=== PATIENT | male | born 1945 | race Caucasian/White ===

== ENCOUNTER 2018-10-17 10:05 | Emergency (ER) | payer OTHER ==
--- OUTSIDE RECORDS SUMMARY | 2018-10-17 10:07 | XMS REPORT | Clinical Summary ---
:1945 Author Organization [facility] Address [address] [place] [address] Care Team Providers Name Role Phone Nikhil Ackerman MD Primary Care Provider Allergies Active Allergy Reactions Severity Noted Date Comments Iodine 10/07/2017 Swelling of upper lip Medications Medication Sig Dispensed Refills Start Date End Date Status finasteride (PROSCAR) Take 5 mg by 0 07/04/2017 Active 5 mg tablet mouth daily. atorvastatin Take 40 mg by 0 10/02/2017 Active (LIPITOR) 40 MG mouth daily. tablet metoprolol tartrate Take 25 mg by 0 Active (LOPRESSOR) 25 mg mouth 2 (two) tablet times a day. aspirin (ECOTRIN) 81 Take 81 mg by 0 Active MG enteric coated mouth daily. tablet diosmin complex no.1 Take by mouth. 0 Active (VASCULERA ORAL) turmeric 400 mg Take by mouth. 0 Active capsule amIODarone (PACERONE) Take 1 tablet 60 tablet 0 10/15/2017 11/14/2017 400 MG tablet (400 mg total) by mouth every 12 (twelve) hours for 30 days. apixaban (ELIQUIS) 5 Take 1 tablet (5 60 tablet 0 10/15/2017 11/14/2017 mg tablet mg total) by mouth 2 (two) times a day for 30 days. aspirin (ECOTRIN) 81 Take 1 tablet 30 tablet 0 10/15/2017 11/14/2017 MG enteric coated (81 mg total) by tablet mouth daily for 30 days. metoprolol tartrate Take 0.5 tablets 30 tablet 0 10/15/2017 11/14/2017 (LOPRESSOR) 25 mg (12.5 mg total) tablet by mouth 2 (two) times a day for 30 days. acetaminophen-codeine Take 1-2 tablets 20 tablet 0 10/15/2017 10/25/2017 (TYLENOL WITH CODEINE by mouth every 4 #3) 300-30 mg per (four) hours as tablet needed for moderate pain for up to 10 days. furosemide (LASIX) 40 Take 1 tablet 7 tablet 0 10/15/2017 10/22/2017 mg tablet (40 mg total) by mouth daily for 7 days. potassium chloride Take 1 tablet 7 tablet 0 10/15/2017 10/22/2017 (K-DUR) 20 MEQ CR (20 mEq total) tablet by mouth daily for 7 days. Active Problems Problem Noted Date Tendinitis of finger 10/07/2018 Trigger middle finger of left hand 10/07/2018 Trigger middle finger of right hand 10/07/2018 s/p Right sided weakness 10/11/2017 Atrial fibrillation, currently in sinus rhythm 10/11/2017 Anticoagulated on heparin 10/11/2017 Lactic acidosis 10/08/2017 Hyperglycemia 10/08/2017 Leukemoid reaction 10/08/2017 S/P CABG x 4 10/07/2017 Bleeding 10/07/2017 Postoperative anemia due to acute blood loss 10/07/2017 Coagulopathy 10/07/2017 Coronary artery disease 10/02/2017 Encounters Date Type Specialty Care Team Description 10/07/2018 Office Visit Orthopedic Surgery Timbo Medrano, Bilateral hand pain (Primary Dx); Tendinitis of finger; Trigger middle finger of left hand; Trigger middle finger of right hand after 10/16/2017 Social History Tobacco Use Types Packs/Day Years Used Date Former Smoker Smokeless Tobacco: Never Used Alcohol Use Drinks/Week oz/Week Comments No Sex Assigned at Date Recorded Not on file Job Start Date Occupation Industry Not on file Not on file Not on file Travel History Travel Start Travel End No recent travel history available. Last Filed Vital Signs Not on file Plan of Treatment Health Maintenance Due Date Last Done Comments COLON CANCER SCREENING 1996 SHINGLES VACCINES (#1) 1996 65+ PNEUMOCOCCAL VACCINE (1 of 2 - PCV13) 2011 PNEUMOCOCCAL POLYSACCHARIDE VACCINE AGE 65 AND OVER 2011 INFLUENZA VACCINE 02/19/2018 Implants Implanted Type Area Solutions Consultant Device Shelf Model / Identifier Expiration Serial / Date Lot Lead Pace Mycrdl Bipolar Coax Tmpry Streamline - [id number] Cardiac Pacing N/ A: MEDTRONIC [place] - [id number] / Implanted: 10/07/2017 (Quantity not on file) Leads or N/A CARDIAC RYHTYM / Electrodes or MGMT Accessories Lead Pace Mycrdl Bipolar Coax Tmpry Streamline - [id number] Cardiac Pacing N/ A: MEDTRONIC [place] - [id number] / Implanted: 10/07/2017 (Quantity not on file) Leads or N/A CARDIAC RYHTYM / Electrodes or MGMT Accessories Clip Ligtng Weck Hemoclip Plus W/ Tape Ti Med - [id number] Medical Clips N/A : TELEFLEX [id number] / Implanted: 10/07/2017 (Quantity not on file) for Internal N/A MEDICAL / Use Clip Ligtng Weck Hemoclip Plus W/ Tape Ti Med - [id number] Medical Clips N/A : TELEFLEX [id number] / Implanted: 10/07/2017 (Quantity not on file) for Internal N/A MEDICAL / Use Clip Ligtng Weck Hemoclip Plus W/ Tape Ti Sm Strngpnt - [id number] Medical Clips N/A: WECK CLOSURE [id number] / Implanted: 10/07/2017 (Quantity not on file) for Internal N/A SYSTEMS / Use Clip Ligtng Weck Hemoclip Plus W/ Tape Ti Sm Strngpnt - [id number] Medical Clips N/A: WECK CLOSURE [id number] / Implanted: 10/07/2017 (Quantity not on file) for Internal N/A SYSTEMS / Use Material Bone Hmsts Wtrsolbl 2.5g Ostene - [id number] Orthopedic N/A: CERA MED 12/19/2021 [id number] / Implanted: Qty: 1 on 10/07/2017 by Pradeep Sung MD Trauma N /A / Implants [id number] [place] Perp Vasclr Ptfe 1.2x10cm 1.65mm - [id number] Vascular Graft N/A: BARD PERIPHERAL 06/18/2022 [id number] / Implanted: Qty: 1 on 10/07/2017 by Pradeep Sung MD N/A VASCULAR / [id number] Procedures Procedure Name Priority Date/Time Associated Comments Diagnosis XR HANDS 3 VW BILATERAL Routine 10/07/2018 9:40 Bilateral hand Results for this AM CDT pain procedure are in the results section. [place] INJECT TENDON Routine 10/07/2018 9:30 Tendinitis of Results for this SHEATH/LIGAMENT AM CDT finger procedure are in Trigger middle the results finger of left section. hand Trigger middle finger of right hand TRANSFUSE PLATELETS Routine 03/26/2018 5:51 PM CDT TRANSFUSE Routine 03/26/2018 5:51 CRYOPRECIPITATE PM CDT TRANSFUSE Routine 03/26/2018 5:51 CRYOPRECIPITATE PM CDT after 10/16/2017 Results XR Hands 3 Vw Bilateral (10/07/2018 9:40 AM CDT) Narrative Performed At 3 views bilateral hands in good penetrance and quality with out any acute [facility] obvious fractures, dislocations or calcifications unless HPI states otherwise. Performing Organization Address City/State/Zipcode Phone Number [facility] [address] [place] [address] Hand/Upper Extremity Injection/Arthrocentesis: Bilateral long finger (2018 9:30 AM CDT) Narrative Performed At Timbo Medrano MD 10/07/2018 10:09 AM Hand/Upper Extremity Injection/Arthrocentesis: Bilateral long finger Date/Time: 10/07/2018 10:08 AM Consent given by: patient Supporting Documentation Indications: pain Procedure Details Condition: trigger finger Site: Bilateral long finger Right side: Needle size: 25 G Approach: anterior Right long finger medications administered: 1 mL lidocaine 10 mg/mL (1 %); 6 mg betamethasone acetate & sodium phosphate 6 mg/mL Patient tolerance: patient tolerated the procedure well with no immediate complications Left side: Needle size: 25 G Approach: anterior Left long finger medications administered: 6 mg betamethasone acetate & sodium phosphate 6 mg/mL; 1 mL lidocaine 10 mg/mL (1 %) Patient tolerance: patient tolerated the procedure well with no immediate complications Injection Type: tendon sheath Transfuse cryoprecipitate (03/26/2018 5:51 PM CDT)Only the most recent of2 resultswithin the time period is included.Transfuse platelets (03/26/2018 5:51 PM CDT)after 10/16/2017 Insurance Payer Benefit Plan / Group Subscriber ID Type Phone Address MEDICARE MEDICARE PART A AND B xxxxxxxxxxx Medicare [place], [place] A[employer] CO OF xxxxxxxxxx [employer] [place] (Home) [place] [address] Advance Directives Patient has advance care planning documents on file. For more information, please contact:Bahman Morris[address] [place] [address]
[2018-10-17] MEDS ORDERED: TETANUS & DIPHTHERIA TOX,ADULT 0.5 ML VIAL ONE (10:47)
[2018-10-17] MEDS ORDERED: DERMABOND SKIN ADHESIVE TOP ONE (10:47)
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
== END 2018-10-17 11:11 | disposition home or self-care (01) ==
LOC: ER 10:05
PROC: 0JQK0ZZ Repair Left Hand Subcutaneous Tissue and Fascia, Open Approach (ICD-10-PCS; principal; 2018-10-17)
DX: S61.211A Laceration without foreign body of left index finger without damage to nail, initial encounter (principal); W33.02XA Accidental discharge of hunting rifle, initial encounter; Y93.89 Activity, other specified; Y92.9 Unspecified place or not applicable; Z23 Encounter for immunization; Z79.82 Long term (current) use of aspirin; Z85.828 Personal history of other malignant neoplasm of skin; Z95.1 Presence of aortocoronary bypass graft
CPT/HCPCS: 90714; 99284

== ENCOUNTER 2018-11-17 11:49 | Day surgery (SDC) | payer OTHER ==
--- OUTSIDE RECORDS SUMMARY | 2018-11-17 11:52 | XMS REPORT | Clinical Summary ---
:1945 Author Organization [facility] Address [address] [place] [address] Care Team Providers Name Role Phone Nikhil Ackerman MD Primary Care Provider Allergies Active Allergy Reactions Severity Noted Date Comments Iodine 10/07/2017 Swelling of upper lip Medications Medication Sig Dispensed Refills Start Date End Date Status finasteride (PROSCAR) 5 Take 5 mg by 0 07/04/2017 Active mg tablet mouth daily. atorvastatin (LIPITOR) Take 40 mg by 0 10/02/2017 Active 40 MG tablet mouth daily. metoprolol tartrate Take 25 mg by 0 Active (LOPRESSOR) 25 mg tablet mouth 2 (two) times a day. aspirin (ECOTRIN) 81 MG Take 81 mg by 0 Active enteric coated tablet mouth daily. diosmin complex no.1 Take by mouth. 0 Active (VASCULERA ORAL) turmeric 400 mg capsule Take by mouth. 0 Active Active Problems Problem Noted Date Tendinitis of [...] Trigger middle finger of right hand after 11/16/2017 Social History Tobacco Use Types Packs/Day Years [...] AGE 65 AND OVER 2011 INFLUENZA VACCINE 02/19/2019 Implants Implanted Type Area Pharmacy Coordinator Device Shelf Model / Identifier Expiration Serial / Date Lot Lead Pace Mycrdl Bipolar Coax Tmpry Streamline - [id number] Cardiac Pacing N/ A: MEDTR[employer]IC [place] - [id number] / Implanted: 10/07/2017 (Quantity not on file) Leads or N/A CARDIAC RYHTYM / Electrodes or MGMT Accessories Lead Pace Mycrdl Bipolar Coax Tmpry Streamline - [id number] Cardiac Pacing N/ A: [employer]TRONIC [place] - 6495 / Implanted: 10/07/2017 (Quantity not on file) Leads or N/A CARDIAC RYHTYM / Electrodes or MGMT Accessories Clip Ligtng Weck Hemoclip Plus W/ Tape Ti Med - [id number] Medical Clips N/A : TELEFLEX [id number] / Implanted: 10/07/2017 (Quantity not on file) for Internal N/A MEDICAL / Use Clip Ligtng Weck Hemoclip Plus W/ Tape Ti Med - [id number] Medical Clips N/A : TELEFLEX [id number] / Implanted: 10/07/2017 (Quantity not on file) for Internal N/A MEDICAL / Use Clip Ligtng Weck Hemoclip Plus W/ Tape Ti Sm Strngpnt - [id number] Medical Clips N/A: WECK CLOSURE [id number] / Implanted: 10/07/2017 (Quantity not on file) for Internal N/A SYSTEMS / Use Clip Ligtng Weck Hemoclip Plus W/ Tape Ti Sm Strngpnt - [id number] Medical Clips N/A: LAURA CLOSURE [id number] / Implanted: 10/07/2017 (Quantity not on file) for Internal N/A SYSTEMS / Use Material Bone Hmsts Wtrsolbl 2.5g Ostene - [id number] Orthopedic N/A: CERA MED 12/19/2021 [id number] / Implanted: Qty: 1 on 10/07/2017 by Pradeep Sung MD Trauma N /A / Implants [id number] [place] Perph Vasclr Ptfe 1.2x10cm 1.65mm - [id number] Vascular Graft N/A: BARD PERIPHERAL 06/18/2022 [id number] / Implanted: Qty: 1 on 10/07/2017 by Pradeep Sung MD N/A VASCULAR / [id number] Procedures Procedure Name Priority Date/Time Associated Comments Diagnosis XR HANDS 3 VW BILATERAL Routine 10/07/2018 9:40 Bilateral hand Results for this AM CDT pain procedure are in the results section. [place] INJECT TENDON Routine 10/07/2018 9:30 Tendinitis of Results for this SHEATH/LIGAMENT AM CDT finger procedure are in Trigger middle the results finger of left section. hand Trigger middle finger of right hand TRANSFUSE PLATELETS Routine 03/26/2018 5:51 PM CDT TRANSFUSE Routine 03/26/2018 5:51 CRYOPRECIPITATE PM CDT TRANSFUSE Routine 03/26/2018 5:51 CRYOPRECIPITATE PM CDT after 11/16/2017 Results XR Hands 3 Vw Bilateral (10/07/2018 9:40 AM CDT) Narrative Performed At 3 views bilateral hands in good penetrance and quality with out any acute [facility] obvious fractures, dislocations or calcifications unless HPI states otherwise. Performing Organization Address City/State/Zipcode Phone Number [facility] [address] [place] [address] Hand/Upper Extremity Injection/Arthrocentesis: Bilateral long finger (2018 [...] is included.Transfuse platelets (03/26/2018 5:51 PM CDT)after 11/16/2017 Insurance Payer Benefit Plan / Group Subscriber ID Type Phone Address MEDICARE MEDICARE PART A AND B xxxxxxxxxxx Medicare [place], [place] [employer]NA [employer] OF xxxxxxxxxx [address] [place] (Home) [place] [address] Advance Directives Patient has advance care planning documents on file. For more information, please contact:Bahman Morris[address] [place] [address]
[2018-11-17] MEDS ORDERED: NA CHLORIDE 0.9% 500 ML ONE (12:16)
[2018-11-17] MEDS ORDERED: CYCLOPENTOLATE 1% OPTH 2 ML ONE (12:17)
[2018-11-17] MEDS ORDERED: PHENYLEPHRINE 10% OPTH 5ML ONE (12:17)
[2018-11-17] MEDS: LIDOCAINE 2% MPF 5 ML VIAL ONE ×2 (12:18→13:35)
[2018-11-17] MEDS: BUPIVACAINE 0.25% PF 10 ML VIAL ONE ×2 (12:18→13:35)
[2018-11-17] MEDS: TETRACAINE HCL 0.5% 4ML OPTH ONE ×2 (12:18→13:34)
[2018-11-17] MEDS ORDERED: PHENYLEPHRINE 10% OPTH 5ML OPTH ONE ×2 (12:29→12:42)
[2018-11-17] MEDS ORDERED: CYCLOPENTOLATE 1% OPTH 2 ML OPTH ONE ×2 (12:29→12:42)
[2018-11-17] MEDS ORDERED: BALANCED SALT IRRIG PLAIN 500 ML BTL IRR ONE (13:03)
[2018-11-17] MEDS ORDERED: DUOVISC 1 KIT OPTH ONE ×2 (13:03→13:53)
[2018-11-17] MEDS ORDERED: EPINEPHRINE/PF 1 MG/ML AMP ONE (13:03)
[2018-11-17] MEDS ORDERED: NS 0.9% VIAL 10 ML ONE (13:03)
[2018-11-17] MEDS ORDERED: MOXIFLOXACIN HCL 10 DROPS/ML **OR USE OPTH ONE (13:04)
[2018-11-17] MEDS ORDERED: LIDOCAINE 1% MPF 5 ML VIAL ONE (13:18)
[2018-11-17] MEDS ORDERED: PROPOFOL 200 MG/20 ML VIAL IV ONE ×2 (13:18→13:30)
[2018-11-17] MEDS ORDERED: LIDOCAINE 2% MPF 5 ML VIAL ONE (13:30)
--- NOTE | 2018-11-17 14:18 | P.BOP ---
Preoperative diagnosis: Nuclear sclerotic cataract OD Postoperative diagnosis: Same Primary procedure: Phacoemulsification with IOL OD Estimated blood loss: None Anesthesia: Local (Subtenon's infusion with anesthesia for cataract surgery) Complications: None Implants: [id number] +21.5 Transferred to: Other (Day surgery) Condition: Good
--- NOTE | 2018-11-18 01:17 | OP ---
Date of Procedure: 11/17/2018 Surgeon: Meenu Brooks MD Anesthesiologist: Zofia Sierra CRNA and Pineda Rosado MD. Preoperative Diagnosis: Nuclear sclerotic cataract, right eye. Operation Performed: Phacoemulsification with intraocular lens implant, right eye. Anesthesia: Per cataract surgery. Complications: None. Description Of Procedure: In day surgery, the patient was prepped with Betadine and draped. A conju nctival incision was made in the inferior nasal quadrant with Merrill scissors. A sub-Tenon block c onsisting of a 1:1 mixture of 2% Xylocaine and 0.25% bupivacaine was placed through the conjunctival incision with a blunt cannula. A Honan balloon was placed over the eye and the patient was transferr ed to the operating room. In the operating room the patient was prepped and draped in the usual sterile fashion for ophthalmic surgery. A lid speculum was placed in the right eye. Two paracentesis sites were made superiorly an d inferiorly in the limbal cornea. Viscoat was placed in the anterior chamber and a crescent blade w as used to make a corneal groove and tunnel, and a keratome was used to enter the anterior chamber. Provisc was placed in the anterior chamber and a 360 degree capsulotomy was performed with a cystitom e. The lens was hydrodissected with BSS and rotated freely. The lens was removed with a stop and ch op technique. 19.14 phaco CDE was used to remove the lens. Residual cortex was removed with the irr igation and aspiration. Provisc was placed in the capsular bag. A ZCB00 +21.5 lens was placed in th e capsular bag without complications. Irrigation and aspiration were used to remove residual viscoel astic. The paracentesis sites were hydrated with BSS. The wound and paracentesis sites were inspect ed and found to be watertight. Vigamox 0.07 cc was placed intracamerally at the end of the procedure . The eye was irrigated with balanced salt solution. The eye was patched with a soft cotton patch a nd Hernandez metal shield. The patient was returned to day surgery in good condition. Comments: 1:5000 epinephrine was placed in the anterior chamber prior to Viscoat. Discharge Instructions: Mr. Valentine is discharged to home in good condition and is to follow up with D r. Leidlein in the morning. JHL/MODL Voice ID: [id number] Report ID: [id number]
== END 2018-11-17 14:40 | disposition home or self-care (01) ==
LOC: OR 11:49
PROVIDERS: ATTEND Ophthalmology Retina Specialist
PROC: 08RJ3JZ Replacement of Right Lens with Synthetic Substitute, Percutaneous Approach (ICD-10-PCS; principal; 2018-11-17 12:15)
DX: H25.11 Age-related nuclear cataract, right eye (principal); I10 Essential (primary) hypertension; I25.10 Atherosclerotic heart disease of native coronary artery without angina pectoris; E78.00 Pure hypercholesterolemia, unspecified; Z95.1 Presence of aortocoronary bypass graft; Z86.73 Personal history of transient ischemic attack (TIA), and cerebral infarction without residual deficits; Z79.82 Long term (current) use of aspirin; Z88.3 Allergy status to other anti-infective agents; Z80.9 Family history of malignant neoplasm, unspecified
CPT/HCPCS: 66984; J2704; J0171

== ENCOUNTER 2018-12-29 09:58 | Day surgery (SDC) | payer OTHER ==
--- OUTSIDE RECORDS SUMMARY | 2018-12-29 10:01 | XMS REPORT | Clinical Summary ---
:1945 Author Organization [facility] Address [address] [place] [address] Care Team Providers Name Role Phone Nikhil [...] Trigger middle finger of right hand after 12/28/2017 Social History Tobacco Use Types Packs/Day Years [...] VACCINE (1 of 2 - PCV13) 2011 INFLUENZA VACCINE 02/19/2019 Implants Implanted Type Area Boiler Out Device Shelf Model / Identifier Expiration Serial / Date Lot Lead Pace Mycrdl Bipolar Coax Tmpry Streamline - [id number] Cardiac Pacing N/ A: [employer] [place] - 6495 / Implanted: 10/07/2017 (Quantity not on file) Leads or N/A CARDIAC RYHTYM / Electrodes or MGMT Accessories Lead Pace Mycrdl Bipolar Coax Tmpry Streamline - [id number] Cardiac Pacing N/ A: [employer] [place] - 6495 / Implanted: 10/07/2017 (Quantity not on file) Leads or N/A CARDIAC RYHTYM / Electrodes or MGMT Accessories Clip Ligtng Weck Hemoclip Plus W/ Tape Ti Med - [id number] Medical Clips N/A : TELEFLEX [id number] / Implanted: 10/07/2017 (Quantity not on file) for Internal N/A MEDICAL / Use Clip Ligtng Weck Hemoclip Plus W/ Tape Ti Med - [id number] Medical Clips N/A : TELEFLEX [id number] / Implanted: 10/07/2017 (Quantity not on file) for Internal N/A MEDICAL / Use Clip Ligtng Weck Hemoclip Plus W/ Tape Ti Sm Strngpnt - [id number] Medical Clips N/A: WECK CLOSURE [id number] / Implanted: 10/07/2017 (Quantity not on file) for Internal N/A SYSTEMS / Use Clip Ligtng Weck Hemoclip Plus W/ Tape Ti Sm Strngpnt - [id number] Medical Clips N/A: WECK CLOSURE [id number] / Implanted: 10/07/2017 (Quantity not on file) for Internal N/A SYSTEMS / Use Material Bone Hmsts Wtrsolbl 2.5g Ostene - [id number] Orthopedic N/A: CERA MED 12/19/2021 [id number] / Implanted: Qty: 1 on 10/07/2017 by Pradeep Sung MD Trauma N /A / Implants [id number] [place] Perph Vasclr Ptfe 1.2x10cm 1.65mm - [id number] Vascular Graft N/A: BARD PERIPHERAL 06/18/2022 [id number] / Implanted: Qty: 1 on 10/07/2017 by Pradeep Sung MD N/A VASCULAR / [id number] Procedures Procedure Name Priority Date/Time Associated Comments Diagnosis XR HANDS 3 VW BILATERAL Routine 10/07/2018 9:40 Bilateral hand Results for this AM CDT pain procedure are in the results section. ND INJECT TENDON Routine 10/07/2018 9:30 Tendinitis of Results for this SHEATH/LIGAMENT AM CDT finger procedure are in Trigger middle the results finger of left section. hand Trigger middle finger of right hand TRANSFUSE PLATELETS Routine 03/26/2018 5:51 PM CDT TRANSFUSE Routine 03/26/2018 5:51 CRYOPRECIPITATE PM CDT TRANSFUSE Routine 03/26/2018 5:51 CRYOPRECIPITATE PM CDT after 12/28/2017 Results XR Hands 3 Vw Bilateral (10/07/2018 9:40 AM CDT) Specimen Narrative Performed At 3 views bilateral hands in good penetrance and quality with out any acute [facility] obvious fractures, dislocations or calcifications unless HPI states otherwise. Performing Organization Address City/State/Zipcode Phone Number [facility] [address] [place] [address] Hand/Upper Extremity Injection/Arthrocentesis: Bilateral long finger (2018 [...] is included.Transfuse platelets (03/26/2018 5:51 PM CDT)after 12/28/2017 Insurance Payer Benefit Plan / Subscriber ID Effective Dates Phone Address Type Group MEDICARE MEDICARE PART A xxxxxxxxxxx 2011-[place], [place] Medicare AND B nt AETNA [facility] xxxxxxxxxx 2016-[facility] [employer] ivonne [place]ARAJ[place] (Home) [place] [address] Advance Directives Patient has advance care planning documents on file. For more information, please contact:Bahman Morris[address] [place] [address]
[2018-12-29] MEDS ORDERED: LIDOCAINE 2% MPF 5 ML VIAL ONE ×2 (10:18→10:51)
[2018-12-29] MEDS ORDERED: BUPIVACAINE 0.25% PF 10 ML VIAL ONE (10:19)
[2018-12-29] MEDS ORDERED: TETRACAINE HCL 0.5% 4ML OPTH ONE (10:19)
[2018-12-29] MEDS ORDERED: NA CHLORIDE 0.9% 500 ML ONE (10:19)
[2018-12-29] MEDS ORDERED: EPINEPHRINE/PF 1 MG/ML AMP ONE ×2 (10:20→10:21)
[2018-12-29] MEDS ORDERED: NS 0.9% VIAL 10 ML ONE (10:20)
[2018-12-29] MEDS ORDERED: DUOVISC 1 KIT OPTH ONE (10:21)
[2018-12-29] MEDS ORDERED: BALANCED SALT IRRIG PLAIN 500 ML BTL IRR ONE (10:21)
[2018-12-29] MEDS: PHENYLEPHRINE 10% OPTH 5ML ONE ×3 (10:25→10:35)
[2018-12-29] MEDS: CYCLOPENTOLATE 1% OPTH 2 ML ONE ×3 (10:25→10:35)
[2018-12-29] MEDS ORDERED: PROPOFOL 200 MG/20 ML VIAL IV ONE (10:51)
[2018-12-29] MEDS: MOXIFLOXACIN HCL 10 DROPS/ML **OR USE OPTH ONE ×2 (11:25→11:31)
--- NOTE | 2018-12-29 11:41 | P.BOP ---
Preoperative diagnosis: Nuclear sclerotic cataract OS Postoperative diagnosis: Same Primary procedure: Phacoemulsification with IOL OS Estimated blood loss: None Anesthesia: Local (Subtenon's infusion with anesthesia for cataract surgery) Complications: None Implants: [id number] +22.0 Transferred to: Other (Day surgery) Condition: Good
--- NOTE | 2018-12-29 22:37 | OP ---
Surgeon: Meenu Brooks MD Anesthesiologist: Maria A Mujica CRNA and Nam Medrano MD. Preoperative Diagnosis: Nuclear sclerotic cataract, left. Operation Performed: Phacoemulsification with intraocular lens implant, left eye. Anesthesia: Per cataract surgery. Complications: None. Description Of Procedure: In day surgery, the patient was prepped with Betadine and draped. A conju nctival incision was made in the inferior nasal quadrant with Merrill scissors. A sub-Tenon block c onsisting of a 1:1 mixture of 2% Xylocaine and 0.25% bupivacaine was placed through the conjunctival incision with a blunt cannula. A Honan balloon was placed over the eye and the patient was transferr ed to the operating room. In the operating room the patient was prepped and draped in the usual sterile fashion for ophthalmic surgery. A lid speculum was placed in the left eye. Two paracentesis sites were made superiorly and inferiorly in the limbal cornea. Viscoat was placed in the anterior chamber and a crescent blade wa s used to make a corneal groove and tunnel, and a keratome was used to enter the anterior chamber. P rovisc was placed in the anterior chamber and a 360 degree capsulotomy was performed with a cystitome . The lens was hydrodissected with BSS and rotated freely. The lens was removed with a stop and cho p technique. 8.44 phaco CDE was used to remove the lens. Residual cortex was removed with the irrig ation and aspiration. Provisc was placed in the capsular bag. A ZCB00 +22.0 lens was placed in the capsular bag without complications. Irrigation and aspiration were used to remove residual viscoelas tic. The paracentesis sites were hydrated with BSS. The wound and paracentesis sites were inspected and found to be watertight. Vigamox 0.07 cc was placed intracamerally at the end of the procedure. The eye was irrigated with balanced salt solution. The eye was patched with a soft cotton patch and Hernandez metal shield. The patient was returned to day surgery in good condition. Comments: Betadine was used on the skin only, not intraocular. 1:5000 epinephrine was placed in the anterior chamber prior to Viscoat. Discharge Instructions: Mr. Valentine is discharged to home in good condition and is to follow up with Robbin Brooks in the morning. FRANK/JOSE M Voice ID: [id number] Report ID: [id number]
== END 2018-12-29 12:08 | disposition home or self-care (01) ==
LOC: OR 09:58
PROVIDERS: ATTEND Ophthalmology Retina Specialist
PROC: 08RK3JZ Replacement of Left Lens with Synthetic Substitute, Percutaneous Approach (ICD-10-PCS; principal; 2018-12-29 10:30)
DX: H25.12 Age-related nuclear cataract, left eye (principal); E78.00 Pure hypercholesterolemia, unspecified; I10 Essential (primary) hypertension; Z79.82 Long term (current) use of aspirin; Z79.899 Other long term (current) drug therapy; Z95.1 Presence of aortocoronary bypass graft
CPT/HCPCS: 66984; J2704; J0171 ×2

== ENCOUNTER 2020-07-13 06:39 | Emergency (ER) | payer OTHER ==
--- OUTSIDE RECORDS SUMMARY | 2020-07-13 06:41 | XMS REPORT | Continuity of Care Document ---
:1945 Author Organization [facility] t Address [address] [place] [address] Care Team Providers Name Role Phone Tyron BROOKS Primary Care Physician Dennise Medrano MD Attending Clinician Fabi Smith MD Attending Clinician Nirali Srivastava CRNA Attending Clinician Jordi Alexander Attending Clinician YEN Admitting Clinician Unavailable Payers Payer Name Policy Type Policy Effective Date Expiration Date Sour ce Number MEDICAREMEDICARE PART [id number] 2011 [place] A AND 00:00:00 Shinto [id number] 2010 [place] [place] [id number] 2016 Nelly ston [employer] OF 00:00:00 Alexandra [id number]/ 07/2015- ial Problems Condition Condition Condition Status Onset Resolution Last Treating Co mments Source Name Details Category Date Date Treatment Clinician Date Tendinitis Tendinitis Disease Active [place] of finger of finger 3-19 Meth gabby 00:00: st 00 Trigger Trigger Disease Active [place] middle middle 3-19 [facility] finger of finger of 00:00: st right hand right hand 00 s/p Right s/p Right Disease Active [place] sided sided 3-23 Methodi weakness weakness 00:00: st 00 Atrial Atrial Disease Active [place] fibrillati fibrillati 3-23 Me thodi on, on, 00:00: st currently currently 00 in sinus in sinus rhythm rhythm Anticoagul Anticoagul Disease Active H caryl ated on ated on 10-11 Methodi heparin heparin 00:00: st 00 Lactic Lactic Disease Active [place] acidosis acidosis 3-20 Method i 00:00: st 00 Hyperglyce Hyperglyce Disease Active H [facility] guadalupe guadalupe 3-20 Methodi 00:00: st 00 Leukemoid Leukemoid Disease Active [place] reaction reaction 20 Method i 00:00: st 00 S/P CABG 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/P CABG x Disease Active [facility] 4 4 - [facility] 00:00: st 00 Bleeding Bleeding Disease Active [place] on 10-07 Methodi 00:00: st 00 Postoperat Postoperat Disease Active H caryl baylee anemia baylee anemia 10-07 Me thodi due to due to 00:00: st acute acute 00 blood loss blood loss Coagulopat Coagulopat Disease Active [facility] hy hy 3-19 Methodi 00:00: st 00 Coronary Coronary Disease Active [place] artery artery 3-14 [facility] disease disease 00:00: st 00 Allergies, Adverse Reactions, Alerts Allergy Allergy Status Severity Reaction(s) Onset Inactive Treating Comm ents Source Name Type Date Date Clinician Iodine Propensi Active Swelling contrast [place] ty to 10-07 [facility] adverse 00:00: st reaction 00 s to drug Social History Social Habit Start Date Stop Date Quantity Comments Source Sex Assigned At [facility] ethodist Tobacco use and 2019-12-29 2019-12-29 Never used [facility] ethodist exposure 00:00:00 00:00:00 Alcohol intake 2019-12-29 2019-12-29 Current [facility] thodist 00:00:00 00:00:00 non-drinker of alcohol (finding) Smoking Status Start Date Stop Date Source Former smoker 2019-12-29 00:00:00 2019-12-29 00:00:00 Bahman Morris Medications Ordered Filled Start Stop Current Ordering Indication Dosage Frequency Signature Comments Components Source Medication Medication Date Date Medication? Clinician (SIG) Name Name aspirin Yes 81mg QD Take 81 mg [place] (ECOTRIN) 12-16 by mouth Method i 81 MG 09:19: daily. st enteric 10 coated tablet turmeric Yes Take by Brody n 400 mg 12-16 mouth. Methodi capsule 09:19: st 10 metoprolol 2020- No 25mg Q.5D Take 25 mg [place] tartrate 12-16 by mouth 2 Meth gabby (LOPRESSOR) 07:04: 00:00 (two) st 25 mg 01 :00 times a tablet day. diosmin 2019- No Take by Brody n complex 12-16 mouth. Methodi no.1 07:04: 00:00 st (VASCULERA 01 :00 ORAL) HYDROcodone 2019- No acute pain acute Ruggiero -acetaminop 12-16 0607 pain. 1 Meth gabby hen (NORCO) 00:00: 23:[address] 7.5-325 mg 00 :00 Q4-6H prn per tablet pain atorvastati Yes 40mg QD Take 40 mg Bahman n (LIPITOR) 3-14 by mouth Meth gabby 40 MG 00:00: daily. st tablet 00 finasteride 2016-07 Yes 5mg QD Take 5 mg [place] (PROSCAR) 5 2-14 by mouth Meth gabby mg tablet 00:00: daily. st 00 Vital Signs Vital Name Observation Time Observation Value Comments Source Systolic blood 2019-12-17 08:54:00 144 mm[Hg] [place] [facility] pressure Diastolic blood 2019-12-17 08:54:00 78 mm[Hg] [place] [facility]into pressure Body temperature 2019-12-17 08:54:00 36.44 Janet [place] [facility] Respiratory rate 2019-12-17 08:54:00 19 /min [place] [facility] Oxygen saturation in 2019-12-17 08:54:00 99 /min Bahman Morris Arterial blood by Pulse oximetry Heart rate 2019-12-17 08:25:00 71 /min Bahman Morris Body height 2019-12-17 07:03:00 175.3 cm Bahman Morris Body weight 2019-12-17 07:03:00 85.231 kg Bahman Morris BMI 2019-12-17 07:03:00 27.75 kg/m2 [place] [facility]into Procedures Procedure Date / Time Performed Performing Clinician [facility] e UT AN PERIPHERAL BLOCK 2019-12-17 07:52:13 Stanford Srivastava [place] [facility] PROCEDURE FOR PAIN RELEASE, TRIGGER FINGER 2019-12-17 07:47:00 Afua Medrano Plan of Care Planned Activity Planned Date Details Comments Source Future Scheduled 2020-02-20 INFLUENZA VACCINE [place] [facility] Test 00:00:00 [code = INFLUENZA VACCINE] Future Scheduled 2011 65+ PNEUMOCOCCAL [place] [facility] Test 00:00:00 VACCINE (1 of 1 - PPSV23) [code = 65+ PNEUMOCOCCAL VACCINE (1 of 1 - PPSV23)] Future Scheduled 1996 COLONOSCOPY SCREENING Ho [facility]into Test 00:00:00 [code = COLONOSCOPY SCREENING] Future Scheduled 1996 SHINGLES VACCINES (#1) H c[facility]into Test 00:00:00 [code = SHINGLES VACCINES (#1)] Future Scheduled 1962 COVID-19 VACCINE (#1) Ho [place] [facility] Test 00:00:00 [code = COVID-19 VACCINE (#1)] Encounters Start End Encounter Admission Attending Care Care Encounter Source Date/Time Date/Time Type Type Clinicians Facility Department ID 2019-12-29 2019-12-29 Outpatient [facility] [id number] [place] 00:00:00 00:00:00 AFUA [address] 2019-12-17 2019-12-17 Outpatient [facility] [id number] [place] 00:00:00 00:00:00 AFUA [address] Results Test Test Test Results Result Source Description Time Comments Comments Peripheral Stanford Srivastava [place] Block 28 FRUIT CULLER 12/17/2019 7:53 Shinto 07:52:13 AMPeripheral BlockPerformed by: Stanford Srivastava CRNAAuthorized by: Vivi Smith MD Patient Location: ORStart Time: 12/17/2019 7:52 AMEnd Time: 12/17/2019 7:56 AMReason for Block: at surgeon's request Staff: Anesthesiologist: Vivi Smith MD Resident/FRUIT CULLER/AA: Stanford Srivastava CRNA Performed by: AnesthesiologistPreproced ure: patient identified, IV checked, site and side verified, risks and benefits discussed, procedure verified, surgical consent complete, patient position confirmed, monitors and equipment checked, pre-op evaluation complete, site marked and timeout performed prior to procedure Peripheral Nerve Block: Patient Position: Supine Prep: alcohol swabs Monitoring: Heart rate, continuous pulse oximetry and blood pressure monitoringBlock Type: [place] blockLaterality: LeftInjection Technique: Single injectionNeedle: Needle Gauge: 22 GAssessment: Injection Assessment: No symptoms of intraneural/intravenous injection Paresthesia Pain: None Heart Rate Change: No Slow Fractionated Injection: Yes Block outcome: Patient comfortable, patient tolerated procedure well and no apparent complicationsNotes: L-UE ESMARC EXSANG/TOUR UPX2/IV LIDOCAINE
--- OUTSIDE RECORDS SUMMARY | 2020-07-13 06:41 | XMS REPORT | Clinical Summary ---
:1945 Author Organization [facility] Address [address] [place] [address] Care Team Providers Name Role Phone MD Tyron Primary Care Provider Allergies Active Allergy Reactions Severity Noted Date Comments Iodine Swelling 10/07/2017 contrast Medications Medication Sig Dispensed Refills Start Date End Date Status finasteride Take 5 mg by 0 07/04/2017 Acti ve (PROSCAR) 5 mg mouth daily. tablet atorvastatin Take 40 mg 0 10/02/2017 Activ e (LIPITOR) 40 MG by mouth tablet daily. aspirin (ECOTRIN) 81 Take 81 mg 0 Active MG enteric coated by mouth tablet daily. turmeric 400 mg Take by 0 Acti ve capsule mouth. metoprolol tartrate Take 25 mg 0 0 Discontinued (LOPRESSOR) 25 mg by mouth 2 tablet (two) times a day. diosmin complex no.1 Take by 0 0 Discontinued (VASCULERA ORAL) mouth. HYDROcodone-acetamin acute pain. 20 tablet 0 12/17/20192019 ophen (NORCO) 1 tab PO 7.5-325 mg per Q4-6H prn tabletIndications: pain acute pain Active Problems Problem Noted Date Tendinitis of finger 10/07/2018 Trigger middle finger of left hand 10/07/2018 Trigger middle finger of right hand 10/07/2018 s/p Right sided weakness 10/11/2017 Atrial fibrillation, currently in sinus rhythm 018 Anticoagulated on heparin 10/11/2017 Lactic acidosis 10/08/2017 Hyperglycemia 10/08/2017 Leukemoid reaction 10/08/2017 S/P CABG x 4 10/07/2017 Bleeding 10/07/2017 Postoperative anemia due to acute blood loss 8 Coagulopathy 10/07/2017 Coronary artery disease 10/02/2017 Encounters Date Type Specialty Care Team Description 12/29/2019 Office Visit Orthopedic Surgery Timbo Medrano is of mayco Bowden MD (Primary Dx) 12/29/2019 Travel 12/17/2019 Anesthesia Event Orthopedic Surgery Vivi Smith MD Duncan, Andrea Leigh, LAKHWINDER 12/17/2019 Surgery Orthopedic Surgery Timbo Medrano LEFT MID DLE MAYCO Bowden MD TRIGGER RELEASE AND ANY INDICATED PROCEDURES 12/17/2019 Hospital Encounter Orthopedic Surgery Timbo Medrano MD 12/17/2019 Travel 10/01/2019 Travel 08/27/2019 Telephone Orthopedic Surgery Hope Scott, JUAREZ 08/20/2019 Telephone Orthopedic Surgery Hope Scott PA 08/19/2019 Telephone Orthopedic Surgery Hope Scott, JUAREZ 08/18/2019 Telephone Orthopedic Surgery Hope Scott PA after 07/13/2019 Surgical History Surgery Date Site/Laterality Comments CABG, WITH ENDOSCOPIC VEIN 10/07/2017 Chest/N/A Proce dure: Cabg, With HARVESTING Endoscopic Vein Harvesting, JEAN to LAD, SVG to OM1, SVG to Om2, SVG to D IAG.; Surgeon: Pradeep Sung MD; Location: [facility]; Service: Cardiothoracic; Laterality: N/A; Medical devices from this surgery are in t he Implants section. RELEASE, TRIGGER FINGER 12/17/2019 Fingers/Left Procedur e: LEFT MIDDLE FINGER TRIGGER RELEASE AND ANY INDICATED PROCED URES; Surgeon: Timbo Medrano MD; Location: [place] [address] OR; Service: Orthop edics; Laterality: Left ; Medical History Medical History Date Comments Hypertension Cancer (HCC) ear Coronary artery disease Enlarged prostate Social History Tobacco Use Types Packs/Day Years Used Date Former Smoker Smokeless Tobacco: Never Used Alcohol Use Drinks/Week oz/Week Comments No Sex Assigned at Date Recorded Not on file Last Filed Vital Signs Vital Sign Reading Time Taken Comments Blood Pressure 144/78 12/17/2019 8:54 AM CDT Pulse 71 12/17/2019 8:25 AM CDT Temperature 36.4 C (97.6 F) 12/17/2019 8:54 AM CDT Respiratory Rate 19 12/17/2019 8:54 AM CDT Oxygen Saturation 99% 12/17/2019 8:54 AM CDT Inhaled Oxygen Concentration - - Weight 85.2 kg (187 lb 14.4 oz) 12/17/2019 7:03 AM CDT Height 175.3 cm (5' 9") 12/17/2019 7:03 AM CDT Body Mass Index 27.75 12/17/2019 7:03 AM CDT Plan of Treatment Health Maintenance Due Date Last Done Comments COVID-19 VACCINE (#1) 1962 COLONOSCOPY SCREENING 1996 SHINGLES VACCINES (#1) 1996 65+ PNEUMOCOCCAL VACCINE (1 of 1 - PPSV23) 2011 INFLUENZA VACCINE 02/20/2020 Implants Implanted Type Area Commissioned Sales Associate Device Shelf Model / Identifier Expiration Serial / Date Lot Lead Pace Mycrdl Bipolar Coax Tmpry Streamline - [id number] Card iac Pacing N/A: [employer] [place] - [id number] / Implanted: 10/07/2017 at [facility] (Quantity not on file) Neyda ds or N/A CARDIAC RYHTYM / Electrodes or MGMT Accessories Lead Pace Mycrdl Bipolar Coax Tmpry Streamline - [id number] Card iac Pacing N/A: [employer] [place] - 6495 / Implanted: 10/07/2017 at [facility] (Quantity not on file) Neyda ds or N/A CARDIAC RYHTYM / Electrodes or MGMT Accessories Clip Ligtng Weck Hemoclip Plus W/ Tape Ti Med - [id number] Medic al Clips N/A: TELEFLEX [id number] / Implanted: 10/07/2017 at [facility] (Quantity not on file) for Internal N/A MEDICAL / Use Clip Ligtng Weck Hemoclip Plus W/ Tape Ti Med - [id number] Medic al Clips N/A: TELEFLEX [id number] / Implanted: 10/07/2017 at [facility] (Quantity not on file) for Internal N/A MEDICAL / Use Clip Ligtng Weck Hemoclip Plus W/ Tape Ti Sm Strngpnt - [id number] Medical Clips N/A: WECK CLOSURE [id number] / Implanted: 10/07/2017 at [facility] (Quantity not on file) for Internal N/A SYSTEMS / Use Clip Ligtng [place] Hemoclip Plus W/ Tape Ti Sm Strngpnt - [id number] Medical Clips N/A: WECK CLOSURE [id number] / Implanted: 10/07/2017 at [facility] (Quantity not on file) for Internal N/A SYSTEMS / Use Material Bone Hmsts Wtrsolbl 2.5g Ostene - [id number] Orthopedic N/A: CERA MED 12/19/2021 [id number] / Implanted: Qty: 1 on 10/07/2017 by Pradeep Dexter MD at [facility] Trauma N/A / Implants [id number] W [place] Perph Vasclr Ptfe 1.2x10cm 1.65mm - [id number] Vascular Gra ft N/A: BARD PERIPHERAL 06/18/2022 [id number] / Implanted: Qty: 1 on 10/07/2017 by Pradeep Dexter MD at [facility] N/A VASCULAR / [id number] Procedures Procedure Name Priority Date/Time Associated Comments Diagnosis UT AN PERIPHERAL Routine 12/17/2019 7:52 AM Resu lts for this BLOCK PROCEDURE FOR CDT procedur e are in PAIN the results section. 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: [facility] Srivastava CRNA Performed by: Anesthesiologist Preprocedure: patient identified, IV vadim cked, site and side verified, risks and benefits discussed, procedure verified, surgical consent complete, patient position confirmed, mo nitors and equipment checked, pre-op evaluation complete, site marked and timeout performed prior to procedure Peripheral Nerve Block: Patient Position: Supine Prep: alcohol swabs Monitoring: Heart rate, continuous pulse oximetry and blood pressure monitoring Block Type: [place] block Laterality: Left Injection Technique: Single injection Needle: Needle Gauge: 22 G Assessment: Injection Assessment: No symptoms of intraneural/ intravenous injection Paresthesia Pain: None Heart Rate Change: No Slow Fractionated Injection: Yes Block outcome: Patient comfortable, patient layla ated procedure well and no apparent complications Notes: L-UE ESMARC EXSANG/TOUR UPX2/IV LIDOCAINE after 07/13/2019 Insurance Payer Benefit Plan / Subscriber ID Effective Dates Phone Addre ss Type Group MEDICARE MEDICARE PART A [id number] 2011-[facility], [place] Medicare AND B nt AETNA [facility] [id number] 2016-Aníbal [employer] ivonne [place]ARAJAN (Home) [place] [address] Advance Directives For more information, please contact: [phone] Type Date Recorded 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
[2020-07-13 07:39] LABS: Absolute Lymphocytes (CBC) 0.5 K/uL (0.7-4.9); Basophils % 0.2 % (0-1.3); Hematocrit 45.5 % (39.6-49.0); Lymphocytes % 7.4 % (15.3-44.8); RBC Red Blood Cell Count 5.11 M/uL (4.33-5.43)
[2020-07-13 07:42] LABS: Protime INR 1.03
[2020-07-13 07:51] LABS: ALT/SGPT 34 U/L (12-78); AST/SGOT 30 U/L (15-37); Albumin 3.5 g/dL (3.4-5.0); Alkaline Phosphatase 105 U/L (45-117); BUN Blood Urea Nitrogen 18 mg/dL (7-18); Bicarbonate 27 mmol/L (21-32); Bilirubin Direct 0.1 mg/dL (0-0.2); Bilirubin Total 0.6 mg/dL (0.2-1.0); Ferritin 97.1 ng/mL (26-388); Glucose Level 98 mg/dL (74-106); Lipase 139 U/L (73-393); Potassium 4.2 mmol/L (3.5-5.1); Protein, Total 7.6 g/dL (6.4-8.2); Sodium Level 139 mmol/L (136-145); Troponin (Emerg Dept Use Only) < 0.02 ng/mL (0.0-0.045)
[2020-07-13] MEDS ORDERED: NA CHLORIDE 0.9% 50 ML ONE (08:01)
[2020-07-13] MEDS ORDERED: CEFTRIAXONE/SWI 1gm 1 GM/10 ML SYR ONE (08:01)
[2020-07-13] MEDS ORDERED: ACETAMINOPHEN 500 MG TAB ONE (08:01)
[2020-07-13 08:32] LABS: Blood Morphology Comment NOT SEEN (NOT SEEN); Platelet Estimate ADEQ
[2020-07-13] MEDS ORDERED: FAMOTIDINE 20 MG/2 ML VIAL IV ONE (08:35)
[2020-07-13] MEDS ORDERED: METHYLPREDNISOLONE 125 MG INJ ONE (08:35)
[2020-07-13] MEDS ORDERED: DIPHENHYDRAMINE 50 MG/ML VIAL ONE (08:35)
--- NOTE | 2020-07-13 08:41 | RAD REPORT ---
EXAM DESCRIPTION: CT - Chest For Pe Angio - 07/13/2020 8:31 am CLINICAL HISTORY: Cough;Fever COMPARISON: Chest Single View dated 07/13/2020 TECHNIQUE: Dynamically enhanced 3 mm thick images of the chest were obtained during administration o f approximately 150mL Isovue 370 IV contrast. Coronal and oblique MIP reconstruction images were gene rated and reviewed. Exam utilizes a protocol to evaluate the pulmonary arterial tree. All CT scans are performed using dose optimization technique as appropriate and may include automated exposure control or mA/KV adjustment according to patient size. FINDINGS: No pulmonary emboli are identified. The aorta as imaged shows no acute or suspicious finding. Cardiomegaly is present without pericardial thickening or effusion. No focal mass or consolidation. Minimal ground-glass opacification is present in the central left low er lobe. Respiratory motion accentuates the bibasilar interstitial pattern. No cavitation or suspicio us mass of the lung parenchyma. No pleural effusion or pleural thickening. No mediastinal or hilar suspicious masses. No chest wall masses or abnormal axillary lymphadenopathy. Well-healed sternotomy changes present. IMPRESSION: No pulmonary emboli identified. Minimal airspace opacification central aspect left lower lobe. This could be atelectasis or early pne umonia. Lung parenchymal pattern does not elevate suspicion for COVID-19 pneumonia.
--- NOTE | 2020-07-13 09:20 | RAD REPORT ---
EXAM DESCRIPTION: RAD - Chest Single View - 07/13/2020 8:05 am CLINICAL HISTORY: COUGH COMPARISON: Portable September 2017 TECHNIQUE: AP portable chest image was obtained 07/13/2020 8:05 am . FINDINGS: No mass or consolidation. Interstitial pattern is not significantly different. CABG surgic al changes noted. Heart and vasculature are normal. No measurable pleural effusion and no pneumothora x. No acute bony abnormality seen. No acute aortic findings suspected. IMPRESSION: No acute cardiopulmonary process. No significant change from comparison study.
[2020-07-13] MEDS ORDERED: NA CHLORIDE 0.9% 1,000 ML ONE (09:22)
--- NOTE | 2020-07-13 10:59 | ER ---
Nurse's Notes [facility] Name: Delmer Valentine Jr Age: 75 yrs Sex: Male : 1945 Arrival Date: 07/13/2020 Time: 06:[address] Private MD: Diagnosis: Weakness;Fever, unspecified;Pneumonia, unspecified organism;Syncope and collapse Presentation: 07/13 06:49 Chief complaint: Patient states: I have been having cough, fever and dizziness for a sg few days now. Yesterday I broke out in a sweat so the fever had broke, but Im still having this cough and dizziness, as well as having decreased appetite for about a week. Coronavirus screen: cough unrelated to allergies, fatigue, fever, Client presents with at least one sign or symptom that may indicate coronavirus-19. Standard/surgical mask placed on the client. Provider contacted for isolation considerations. Ebola Screen: Patient negative for fever greater than or equal to 101.5 degrees Fahrenheit, and additional compatible Ebola Virus Disease symptoms Patient denies exposure to infectious person. Patient denies travel to an Ebola-affected area in the 21 days before illness onset. No symptoms or risks identified at this time. Initial Sepsis Screen: Does the patient meet any 2 criteria? Temp <36.0*C (96.8*F)) or > 38.3*C (100.9*F). HR > 90 bpm. Yes Does the patient have a suspected source of infection? Yes: Productive cough/pneumonia. Risk Assessment: Do you want to hurt yourself or someone else? Patient reports no desire to harm self or others. Onset of symptoms was July 11, 2020. Care prior to arrival: None. Transition of care: patient was not received from another setting of care. 06:49 Acuity: COLBY 3 sg 06:49 Method Of Arrival: Wheelchair sg Historical: - Allergies: 06:49 Iodinated Contrast Media - IV Dye; sg - PMHx: 06:49 CAD; enlarged prostate; skin cancer; sg - PSHx: 06:49 CABG; sg - Immunization history:: Adult Immunizations up to date. - Social history:: Smoking status: Patient denies any tobacco usage or history of. Screenin:20 Abuse screen: Denies threats or abuse. Denies injuries from another. Nutritional zb screening: No deficits noted. Tuberculosis screening: No symptoms or risk factors identified. Fall Risk Fall in past 12 months (25 points). No secondary diagnosis (0 pts). IV access (20 points). Ambulatory Aid- None/Bed Rest/Nurse Assist (0 pts). Gait- Weak (10 pts.). Mental Status- Oriented to own ability (0 pts). Total Guillory Fall Scale indicates High Risk Score (45 or more points). Fall prevention measures have been instituted. Side Rails Up X 2 Placed Close to Nursing Station Frequent Obs/Assessments Occuring Family Present and informed to notify staff if the need to leave the bedside As available patient and family educated on Fall Prevention Program and Strategies. Assessment: 07:20 General: Appears in no apparent distress. comfortable, Behavior is calm, cooperative, zb appropriate for age, Reports chills for fever for feeling ill for fatigue for. Pain: Complains of pain in headache Pain does not radiate. Pain Quality of pain is described as. Neuro: Level of Consciousness is awake, alert, obeys commands, Oriented to person, place, time, situation. 07:20 Cardiovascular: Capillary refill < 3 seconds in bilateral fingers Patient's skin is zb warm and dry. Respiratory: Airway is patent Respiratory effort is even, unlabored, Respiratory pattern is regular, symmetrical. GI: Abdomen is round non-distended. : No signs and/or symptoms were reported regarding the genitourinary system. EENT: Throat is clear with gag reflex present. Derm: Skin is intact, is healthy with good turgor, Skin is dry, Skin is normal, Skin temperature is warm. Musculoskeletal: Circulation, motion, and sensation intact. Capillary refill < 3 seconds, in bilateral fingers. Range of motion: intact in all extremities. 08:29 Reassessment: Patient appears in no apparent distress at this time. Patient and/or zb family updated on plan of care and expected duration. Pain level reassessed. Patient is alert, oriented x 3, equal unlabored respirations, skin warm/dry/pink. orthostatic completed. ECP notified. 09:27 Reassessment: Patient appears in no apparent distress at this time. Patient and/or zb family updated on plan of care and expected duration. Pain level reassessed. Patient is alert, oriented x 3, equal unlabored respirations, skin warm/dry/pink. left. pt currently sleeping. no c/o at this time. 10:27 Reassessment: Patient appears in no apparent distress at this time. Patient and/or zb family updated on plan of care and expected duration. Pain level reassessed. Patient is alert, oriented x 3, equal unlabored respirations, skin warm/dry/pink. pt resting in bed. currently sleeping. 11:20 Reassessment: ECP spoke to patient and family. updated on POC. zb Vital Signs: 06:49 Pulse 99; Resp 18 S; Temp 101.4; Pulse Ox 97% on R/A; Weight 78.02 kg; sg 08:02 BP 149 / 79; Pulse 92; Resp 18; Pulse Ox 98% on R/A; zb 08:05 BP 148 / 72 Supine; Pulse 95; Pulse Ox 97% on R/A; zb 08:07 BP 141 / 66 Sitting; Pulse 94; zb 08:10 BP 120 / 71 Standing; Pulse 102; zb 09:03 BP 119 / 67; Pulse 82; Resp 16; Temp 101; Pulse Ox 95% on R/A; zb 09:29 BP 116 / 65; Pulse 77; Resp 16; Pulse Ox 95% on R/A; zb 10:06 BP 118 / 66 Supine; Pulse 75; jb1 10:06 BP 121 / 65 Sitting; Pulse 74; jb1 10:06 BP 109 / 68 Standing; Pulse 84; jb1 11:17 BP 115 / 69; Pulse 76; Resp 18; Temp 99.2; Pulse Ox 94% ; zb ED Course: 06:41 Patient arrived in ED. cl3 06:49 Farhat Webb MD is Attending Physician. kdr 06:49 Arm band placed on. sg 06:59 Triage completed. sg 06:59 Monie Vitale, RN is Primary Nurse. vg1 07:20 Inserted saline lock: 20 gauge in right antecubital area, using aseptic technique. zb 07:30 Norma Alvarez, GENE is Primary Nurse. zb 08:04 CXR XRAY In Process Unspecified. EDMS 08:31 CT Chest For PE Angio In Process Unspecified. EDMS 08:33 Patient has correct armband on for positive identification. Bed in low position. Call zb light in reach. Side rails up X 1. blast furnace helper on. Pulse ox on. NIBP on. Door closed. Noise minimized. Warm blanket given. 09:26 Lactate Sent. sv 09:26 Ferritin Sent. sv 09:26 D-Dimer Sent. sv 09:26 BMP Sent. sv 09:27 CBC with Diff Sent. sv 09:27 C-Reactive Protein Sent. sv 09:28 Flu Sent. sv 11:47 IV discontinued, intact, bleeding controlled, No redness/swelling at site. Pressure zb dressing applied. 11:48 No provider procedures requiring assistance completed. zb Administered Medications: 07:55 Drug: Tylenol 1000 mg Route: PO; zb 08:30 Follow up: Response: No adverse reaction zb 08:24 Drug: Benadryl 25 mg Route: IVP; Site: right antecubital; zb 11:21 Follow up: Response: No adverse reaction zb 08:24 Drug: Pepcid 20 mg Route: IVP; Site: right antecubital; zb 11:21 Follow up: Response: No adverse reaction zb 08:25 Drug: SOLU-Medrol 125 mg Route: IVP; Site: right antecubital; zb 11:21 Follow up: Response: No adverse reaction zb 08:38 Drug: Rocephin - (cefTRIAXone) 1 grams Route: IVPB; Infused Over: 30 mins; Site: right zb antecubital; 09:00 Follow up: Response: No adverse reaction; IV Status: Completed infusion; IV Intake: 50mlzb 09:23 Drug: NS 0.9% 1000 ml Route: IV; Rate: 1 bolus; Site: right antecubital; zb 10:30 Follow up: Response: No adverse reaction; IV Status: Completed infusion; IV Intake: zb 1000ml Intake: 09:00 IV: 50ml; Total: 50ml. zb 10:30 IV: 1000ml; Total: 1050ml. zb Outcome: 10:58 Discharge ordered by . kdr 11:48 Discharged to home via wheelchair. zb 11:48 Condition: stable 11:48 Discharge instructions given to patient, Instructed on discharge instructions, follow up and referral plans. medication usage, Demonstrated understanding of instructions, follow-up care, medications, Prescriptions given X 2. 11:54 Patient left the ED. zb Signatures: Dispatcher [employer] [place] Stacy1 Meenakshi Hu, RN RN Fuentes Barraza RN RN sg Rittger, Kevin, MD MD kdr Lewis, Charde cl3 Monie Vitale RN RN vg1 Norma Alvarez RN RN zb Corrections: (The following items were deleted from the chart) 09:03 Temp 101F; rosio avelar
--- NOTE | 2020-07-13 10:59 | EDPHYS ---
Physician Documentation [facility] Name: Delmer Valentine Jr Age: 75 yrs Sex: Male : 1945 Arrival Date: 07/13/2020 Time: 06:[address] Private MD: ED Physician Farhat Webb HPI: 07/13 09:00 This 75 yrs old Male presents to ER via Wheelchair with complaints of kdr Dizziness, Fever. 09:01 The patient has experienced syncope, became unresponsive, collapsed. Onset: The kdr symptoms/episode began/occurred suddenly, just prior to arrival. Duration: This was a single episode, that lasted 2 second(s). Context: the episode(s) was witnessed, by family, , occurred at home, occurred while the patient was at rest, The patient had been sitting on the toilet and when he stood to go back to bed, he took five steps and had a syncopal episode the was brief. He has no apparent external injury at this time. Associated injury: The patient did not suffer any apparent associated injury. Associated signs and symptoms: Pertinent positives: dizziness, Pertinent negatives: confusion, diaphoresis, diarrhea, dizziness, lightheadedness, nausea, numbness, palpitations, seizure, shortness of breath. 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 - Social history:: Smoking status: Patient denies any tobacco usage or history of. ROS: 09:01 Constitutional: Negative for fever, chills, and weight loss, Eyes: Negative for injury, kdr pain, redness, and discharge, Neck: Negative for injury, pain, and swelling, Cardiovascular: Negative for chest pain, palpitations, and edema, Respiratory: Negative for shortness of breath, cough, wheezing, and pleuritic chest pain, Abdomen/GI: Negative for abdominal pain, nausea, vomiting, diarrhea, and constipation, Back: Negative for injury and pain, : Negative for injury, bleeding, discharge, and swelling, MS/Extremity: Negative for injury and deformity, Skin: Negative for injury, rash, and discoloration, Psych: Negative for depression, anxiety, suicide ideation, homicidal ideation, and hallucinations, Allergy/Immunology: Negative for hives, rash, and allergies, Endocrine: Negative for neck swelling, polydipsia, polyuria, polyphagia, and marked weight changes, Hematologic/Lymphatic: Negative for swollen nodes, abnormal bleeding, and unusual bruising. 09:01 Neuro: Positive for syncope, Negative for dizziness, gait disturbance, headache, numbness, seizure activity, speech changes, tingling, tinnitus, tremor, visual changes, weakness, acute changes. Exam: 07:24 ECG was reviewed by the Attending Physician. kdr 09:01 Constitutional: This is a well developed, well nourished patient who is awake, alert, kdr and in no acute distress. Head/Face: Normocephalic, atraumatic. Eyes: Pupils equal round and reactive to light, extra-ocular motions intact. Lids and lashes normal. Conjunctiva and sclera are non-icteric and not injected. Cornea within normal limits. Periorbital areas with no swelling, redness, or edema. Neck: Trachea midline, no thyromegaly or masses palpated, and no cervical lymphadenopathy. Supple, full range of motion without nuchal rigidity, or vertebral point tenderness. No Meningismus. Chest/axilla: Normal chest wall appearance and motion. Nontender with no deformity. No lesions are appreciated. Cardiovascular: Regular rate and rhythm with a normal S1 and S2. No gallops, murmurs, or rubs. Normal PMI, no JVD. No pulse deficits. Respiratory: Lungs have equal breath sounds bilaterally, clear to auscultation and percussion. No rales, rhonchi or wheezes noted. No increased work of breathing, no retractions or nasal flaring. Abdomen/GI: Soft, non-tender, with normal bowel sounds. No distension or tympany. No guarding or rebound. No evidence of tenderness throughout. Back: No spinal tenderness. No costovertebral tenderness. Full range of motion. Skin: Warm, dry with normal turgor. Normal color with no rashes, no lesions, and no evidence of cellulitis. MS/ Extremity: Pulses equal, no cyanosis. Neurovascular intact. Full, normal range of motion. Neuro: Awake and alert, GCS 15, oriented to person, place, time, and situation. Cranial nerves II-XII grossly intact. Motor strength 5/5 in all extremities. Sensory grossly intact. Cerebellar exam normal. Normal gait. Psych: Awake, alert, with orientation to person, place and time. Behavior, mood, and affect are within normal limits. Vital Signs: 06:49 Pulse 99; Resp 18 S; Temp 101.4; Pulse Ox 97% on R/A; Weight 78.02 kg; sg 08:02 BP 149 / 79; Pulse 92; Resp 18; Pulse Ox 98% on R/A; zb 08:05 BP 148 / 72 Supine; Pulse 95; Pulse Ox 97% on R/A; zb 08:07 BP 141 / 66 Sitting; Pulse 94; zb 08:10 BP 120 / 71 Standing; Pulse 102; zb 09:03 BP 119 / 67; Pulse 82; Resp 16; Temp 101; Pulse Ox 95% on R/A; zb 09:29 BP 116 / 65; Pulse 77; Resp 16; Pulse Ox 95% on R/A; zb 10:06 BP 118 / 66 Supine; Pulse 75; jb1 10:06 BP 121 / 65 Sitting; Pulse 74; jb1 10:06 BP 109 / 68 Standing; Pulse 84; jb1 11:17 BP 115 / 69; Pulse 76; Resp 18; Temp 99.2; Pulse Ox 94% ; zb MDM: 09:01 Data reviewed: vital signs, nurses notes, old medical records, EKG, radiologic studies. kdr Counseling: I had a detailed discussion with the patient and/or guardian regarding: the historical points, exam findings, and any diagnostic results supporting the discharge/admit diagnosis, lab results, radiology results, the need for outpatient follow up. 10:58 Patient medically screened. kdr 07/13 07:02 Order name: BMP kdr 07/13 07:02 Order name: C-Reactive Protein kdr 07/13 07:02 Order name: CBC with Diff kdr 07/13 07:02 Order name: D-Dimer kdr 07/13 07:02 Order name: Ferritin kdr 07/13 07:02 Order name: Flu kdr 07/13 07:02 Order name: Lactate kdr 07/13 07:02 Order name: LFT's; Complete Time: 08:51 kdr 07/13 07:02 Order name: Lipase; Complete Time: 08:51 kdr 07/13 07:02 Order name: Procalcitonin; Complete Time: 08:51 kdr 07/13 07:02 Order name: PT-INR; Complete Time: 07:51 kdr 07/13 07:02 Order name: Ptt, Activated; Complete Time: 07:51 kdr 07/13 07:02 Order name: Strep; Complete Time: 08:51 kdr 07/13 07:02 Order name: Troponin (emerg Dept Use Only); Complete Time: 08:51 kdr 07/13 07:02 Order name: Urine Microscopic Only kdr 07/13 07:02 Order name: CXR XRAY; Complete Time: 09:34 kdr 07/13 07:03 Order name: Blood Culture EDMS 07/13 07:03 Order name: Basic Metabolic Panel; Complete Time: 08:51 EDMS 07/13 07:03 Order name: C-Reactive Protein; Complete Time: 08:51 EDMS 07/13 07:03 Order name: CBC with Automated Diff; Complete Time: 08:51 EDMS 07/13 07:03 Order name: D-Dimer; Complete Time: 07:51 EDMS 07/13 07:03 Order name: Ferritin; Complete Time: 08:51 EDMS 07/13 07:03 Order name: Influenza Screen (A ; Complete Time: 08:51 EDMS 07/13 07:03 Order name: Lactate; Complete Time: 07:51 EDMS 07/13 08:16 Order name: Throat Culture [facility] 07/13 08:33 Order name: Manual Differential; Complete Time: 08:51 EDMS 07/13 11:48 Order name: Urine Dipstick--Ancillary (enter results) 07/13 07:02 Order name: EKG; Complete Time: 07:03 [facility] 07/13 07:02 Order name: Cardiac monitoring; Complete Time: 07:34 kdr 07/13 07:02 Order name: Droplet/Contact Precautions; Complete Time: 07:34 kdr 07/13 07:02 Order name: EKG - Nurse/Tech; Complete Time: 07:33 kdr 07/13 07:02 Order name: IV Start; Complete Time: 07:33 kdr 07/13 07:02 Order name: Labs collected and sent; Complete Time: 07:33 kdr 07/13 07:02 Order name: O2 Per Protocol; Complete Time: 07:33 kdr 07/13 07:02 Order name: O2 Sat Monitoring; Complete Time: 07:33 [facility] 12/23 07:02 Order name: Urine Dipstick-Ancillary (obtain specimen); Complete Time: 11:22 kdr 07/13 07:50 Order name: CT Chest For PE Angio; Complete Time: 08:51 kdr 07/13 08:55 Order name: Orthostatic Blood Pressure: Repeat once fluid bolus is complete; Complete kdr Time: 11:21 EC:24 Rate is 95 beats/min. Rhythm is regular, Sinus Rhythm with No ectopy, Right bundle kdr branch block. QRS [place] is Normal. IN interval is normal. QRS interval is normal. QT interval is normal. Clinical impression: NSR w/ Non-specific ST/T Changes. Administered Medications: 07:55 Drug: Tylenol 1000 mg Route: PO; zb 08:30 Follow up: Response: No adverse reaction zb 08:24 Drug: Benadryl 25 mg Route: IVP; Site: right antecubital; zb 11:21 Follow up: Response: No adverse reaction zb 08:24 Drug: Pepcid 20 mg Route: IVP; Site: right antecubital; zb 11:21 Follow up: Response: No adverse reaction zb 08:25 Drug: SOLU-Medrol 125 mg Route: IVP; Site: right antecubital; zb 11:21 Follow up: Response: No adverse reaction zb 08:38 Drug: Rocephin - (cefTRIAXone) 1 grams Route: IVPB; Infused Over: 30 mins; Site: right zb antecubital; 09:00 Follow up: Response: No adverse reaction; IV Status: Completed infusion; IV Intake: 50mlzb 09:23 Drug: NS 0.9% 1000 ml Route: IV; Rate: 1 bolus; Site: right antecubital; zb 10:30 Follow up: Response: No adverse reaction; IV Status: Completed infusion; IV Intake: zb 1000ml Disposition: 07/13/20 10:58 Discharged to Home. Impression: Weakness, Fever, unspecified, Pneumonia, unspecified organism, Syncope and collapse. - Condition is Stable. - Discharge Instructions: Fever, Adult, Syncope, [id number], Community-Acquired Pneumonia, Adult, [id number], Weakness, [id number]. - Prescriptions for Zofran 4 mg Oral Tablet - take 1 tablet by ORAL route every 4-6 hours As needed; 12 tablet. Zithromax Z- Martín 250 mg Oral Tablet - take 1 tablet by ORAL route once daily for 4 days; 4 tablet. - Medication Reconciliation Form, Thank You Letter, Antibiotic Education form. - Follow up: Private Physician; When: 2 - 3 days; Reason: If symptoms return, Further diagnostic work-up, Recheck today's complaints, Continuance of care, Re-evaluation by your physician. - Problem is new. - Symptoms have improved. Signatures: Dispatcher [employer] [facility] Fuentes Linares RN RN sg Farhat Webb MD MD kdr Norma Alvarez RN RN zb Corrections: (The following items were deleted from the chart) 07:03 07:03 CORONAVIRUS ordered. [facility] EDNC 07:32 07:02 Barrera ordered. [facility] zb 09:27 07:02 Document PUI# ordered. [facility] sv 09:27 07:02 [facility] [phone]/ ordered. [facility] sv 11:22 07:03 BLOOD CULTURE*+[id number].BRZ ordered. [facility] EDNC 11:54 10:58 07/13/2020 10:58 Discharged to Home. Impression: Weakness; Fever, unspecified; zb Pneumonia, unspecified organism; Syncope and collapse. Condition is Stable. Forms are Medication Reconciliation Form, Thank You Letter, Antibiotic Education, Prescription Opioid Use. Follow up: Private Physician; When: 2 - 3 days; Reason: If symptoms return, Further diagnostic work-up, Recheck today's complaints, Continuance of care, Re-evaluation by your physician. Problem is new. Symptoms have improved. kdr
[2020-07-13 12:35] LABS: Urine Blood TRACE (NEG); Urine Glucose NEGATIVE (NEG); Urine Protein NEGATIVE (NEG); Urine pH 5.5 (5.0-7.0)
[2020-07-13 12:37] LABS: Urine Bacteria <20 /HPF (NONE SEEN); Urine RBC <5 /HPF (NONE SEEN)
[2020-07-13 16:50] VITALS: BP 115/69; TEMP 99.2; O2SAT 94
== END 2020-07-13 11:54 | disposition home or self-care (01) ==
LOC: ER 06:39
DX: J18.9 Pneumonia, unspecified organism (principal); R53.1 Weakness; R55 Syncope and collapse; Z95.1 Presence of aortocoronary bypass graft; Z91.041 Radiographic dye allergy status
CPT/HCPCS: 96365; 96361; 93005; 87040 ×2; 87070; 85025; 87086; 80048; 36415; 85610; 85379; 80076; 87081; 83605; 85730; 84484; 82728; 83690; 84145; 86140; 87804 ×2; 71275; 71045; 96375; 99284; Q9967; J1200; J0696; J7030; J2930; 81003; 81015; 87088